=== PATIENT | female | born 1940 ===

== ENCOUNTER 2022-07-29 05:45 | Day surgery (SDC) | payer OTHER ==
[~2022-07-29] VITALS: Ht 149.9 cm; Wt 66.2 kg
[~2022-07-29 05:45] MED LIST: DIOVAN320 MG PO; HYDRALAZINE HC100 MG PO; SYNTHROID75 MCG PO; TOPROL XL100 M1 PO; TRADJENTA5 MG PO; ZEGERID 40 MG1 EACH PO
[2022-07-29] MEDS ORDERED: TRAM1TAB98 PO (11:10)
[2022-07-29] MEDS ORDERED: CEPHALEXIN500 MG PO (11:10)
== END 2022-07-29 14:20 | disposition home or self-care (01) ==
LOC: CIR.AMB 05:45
PROVIDERS: ATTEND Surgery
DX: R15.9 Full incontinence of feces (principal); R19.7 Diarrhea, unspecified; K92.2 Gastrointestinal hemorrhage, unspecified; Z88.6 Allergy status to analgesic agent; I10 Essential (primary) hypertension; Z20.822 Contact with and (suspected) exposure to COVID-19; E11.9 Type 2 diabetes mellitus without complications; E03.9 Hypothyroidism, unspecified
CPT/HCPCS: 64581; 95972; C1778

== ENCOUNTER 2022-08-12 05:37 | Day surgery (SDC) | payer OTHER ==
[~2022-08-12 05:37] MED LIST changes: +CEPHALEXIN500 MG PO; +TRAM1TAB98 PO
== END 2022-08-12 12:00 | disposition home or self-care (01) ==
LOC: CIR.AMB 05:37
PROVIDERS: ATTEND Surgery
DX: R15.9 Full incontinence of feces (principal); Z88.6 Allergy status to analgesic agent; Z20.822 Contact with and (suspected) exposure to COVID-19; K92.2 Gastrointestinal hemorrhage, unspecified; R19.7 Diarrhea, unspecified; I10 Essential (primary) hypertension; E11.9 Type 2 diabetes mellitus without complications; E03.9 Hypothyroidism, unspecified
CPT/HCPCS: 64590; 95972; L8679